=== PATIENT | male | born 1930 | race Caucasian/White ===

== ENCOUNTER 2019-04-21 21:57 | Inpatient (IN) ==
[2019-04-21] MEDS ORDERED: ZOFRAN IV ONE (22:22)
[2019-04-21 22:23] LABS: BASO# 0.01 X1000 (0.0-0.2); BASO% 0.2 % (0.0-0.8); EOS# 0.14 X1000 (0.0-0.7); EOS% 2.6 % (0.0-10.0); HEMATOCRIT 36.6 % (42.0-52.0); IMM GRAN# 0.01 X1000 (0.0-0.04); IMM GRAN% 0.2 % (0.0-0.5); LYMPH# 1.29 X1000 (1.2-3.4); LYMPH% 23.5 % (20.5-51.1); MCH 31.8 PG (27-31); MCHC 32.8 g/dL (33-37); MCV 97.1 FL (81-99); MONO# 0.66 X1000 (0.11-0.59); MPV 8.7 FL (7.4-10.4); NEUT# 3.38 X1000 (1.4-6.5); NEUT% 61.5 % (42.2-75.2); PLT 220 X1000 (130-400); RBC 3.77 XMIL (4.7-6.1); RDW 13.2 % (11.5-14.5); WBC 5.49 X1000 (4.8-10.8)
[2019-04-21 22:47] LABS: ALBUMIN 4.1 g/dL (3.5-5.0); CALCIUM 9.3 mg/dL (8.8-10.2); CREATININE 1.8 mg/dL (0.7-1.2); POTASSIUM 4.3 mmol/L (3.5-5.1); TOTAL BILIRUBIN 0.2 mg/dL (0.20-1.00); TOTAL PROTEIN 6.6 g/dL (6.3-8.3)
[2019-04-21] MEDS ORDERED: STERILE WATER INJ. ONE (22:47)
[2019-04-21] MEDS ORDERED: ZYPREXA IM ONE (22:47)
--- NOTE | 2019-04-21 22:49 | PROVIDER DOCUMENTATION ---
HPI-Abdominal Pain/GI Problem - General Chief Complaint: Ingestion,Accidental Stated Complaint: throat pain Time Seen by Provider: 04/21/19 21:57 Source: family, EMS Allergies/Adverse Reactions: Patient Allergies Allergy/AdvReac Type Severity Reaction Status Date / Time No Known Allergies Allergy Verified 07/25/13 09:31 Home Medications: Home Medication List Medication Instructions Recorded Confirmed Last Taken Type Aspirin 81 mg PO QAM 07/01/13 11/03/17 07/24/13 History Acetaminophen 500 mg PO DAILY 11/03/17 11/03/17 Unknown History Dicyclomine [Bentyl] 10 mg PO TID 11/03/17 11/03/17 Unknown History Donepezil [Aricept] 10 mg PO DAILY 11/03/17 11/03/17 Unknown History Escitalopram [Lexapro] 10 mg PO DAILY 11/03/17 11/03/17 Unknown History Nitroglycerin 0.4 mg SL PRN PRN 11/03/17 11/03/17 Unknown History Polyethylene Glycol 3350 527 mg PO PRN PRN 11/03/17 11/03/17 Unknown History [Polyethylene Glycol] Quetiapine [Seroquel] 25 mg PO BID 11/03/17 11/03/17 Unknown History - History of Present Illness-ABD Nature of Presenting Problems: Patient is a 89 year old white male with severe dementia with behavior disorder who accidentally drank large amount of [place] around 9pm tonight. Patient as subsequently developed significant vomiting. No respiratory complaints. Poison control consulted who recommended referral to GI specialist. Onset/Duration: reports: abrupt Timing: reports: still present Review of Systems - Adult - REVIEW OF SYSTEMS - ADULT Constitutional: denies: chills, fever Eyes: reports: no symptoms reported Ears, Nose, Mouth & Throat: reports: no symptoms reported Cardiovascular: denies: chest pain Respiratory: denies: shortness of breath Gastrointestinal: reports: see HPI, nausea, vomiting Genitourinary: reports: no symptoms reported Musculoskeletal: reports: no symptoms reported Integumentary: reports: no symptoms reported Neurological: reports: no symptoms reported Psychiatric: reports: see HPI, anxiety Endocrine: reports: no symptoms reported Hematologic/Lymphatic: reports: no symptoms reported Allergic/Immunologic: reports: no symptoms reported All Other Systems: Reviewed and Negative Past History - Adult - PAST MEDICAL HISTORY-ADULT Review of Records: reports: Old Records Reviewed, Nursing Assessment Review, Medications Reviewed, Social history reviewed & non-contributory. Major Childhood Illnesses: reports: denies history Cardiovascular: reports: [place] Respiratory: reports: denies history Gastrointestinal: reports: denies history Obstetrical/Gynecological: reports: denies history Genitourinary: reports: denies history Musculoskeletal: reports: denies history Neurological: reports: dementia Endocrine/Immune: reports: denies history Other Conditions: reports: denies history - PRIOR SURGERIES/PROCEDURES Surgical/Procedure History: reports: cardiac stent - IMMUNIZATION STATUS Childhood Immunizations: See Nurse Assessment Flu Vaccine: See Nurse Assessment - FAMILY HISTORY Family History: reviewed, not pertinent - SOCIAL HISTORY Smoking: denies Substance Use: denies Alcohol Use Frequency: rarely Living Situation: family Physical Exam-General - PHYSICAL EXAM-ADULT Initial Vital Signs Reviewed: Yes - CONSTITUTIONAL General Appearance: alert, no apparent distress, other (demented, agitated) - EYES Eyes: other (clear) - HEAD, EARS, NOSE, MOUTH & THROAT HENMT: moist mucous membranes, other (clear throat) - NECK Neck: non-tender, full range of motion, supple - RESPIRATORY Respiratory: lungs clear - CARDIOVASCULAR Cardiovascular: regular rate, rhythm - GASTROINTESTINAL (ABDOMEN) Abdominal Exam: non tender Progress - PLAN OF CARE/RESULTS Progress/Plan/Lab Results: Vital Signs - 8 hr 04/21/19 21:56 Temperature 97.7 F Pulse Rate 79 Respiratory Rate 18 Blood Pressure 151/73 O2 Sat by Pulse Oximetry 100 Laboratory Results - last 24 hr 04/21/19 22:16 WBC 5.49 RBC 3.77 L Hgb 12.0 L Hct 36.6 L MCV 97.1 MCH 31.8 H MCHC 32.8 L RDW Std Deviation 13.2 Plt Count 220 MPV 8.7 Immature Gran % (Auto) 0.2 Neut % (Auto) 61.5 Lymph % (Auto) 23.5 [place] % (Auto) 12.0 H Eos % (Auto) 2.6 Baso % (Auto) 0.2 Immature Gran # (Auto) 0.01 Neut # (Auto) 3.38 Lymph # (Auto) 1.29 [place] # (Auto) 0.66 H Eos # (Auto) 0.14 Baso # (Auto) 0.01 Orders Category Date Time Status Cardiac Monitoring DIRECTED Care 04/21/19 22:07 Active Misc. NRSG Communication Order DIRECTED Care 04/21/19 22:06 Active CHEST-PORTABLE [RAD] Stat Exams 04/21/19 22:07 Ordered ALCOHOL BLOOD Stat Lab 04/21/19 22:16 Received CBC WITH ELECTRONIC DIFF [HEME] Stat Lab 04/21/19 22:16 Completed CMP [COMPREHENSIVE METABOLIC PANEL] [CHEM] Stat Lab 04/21/19 22:16 Received Ondansetron [Zofran] Med 04/21/19 22:22 Discontinued 4 mg IV NOW ONE EKG [EKG] Stat Ther 04/21/19 22:30 Ordered Result Diagrams: 04/21/19 22:16 04/21/19 22:16 - CONSULTS/PCP/HOSPITALIST Notification #1 *Consult/PCP/Hospitalist*: Poison Control Time Discussed: 22:30 Reason/Comments: consult GI, NPO, supportive care Consult Disposition: Admit #2 Consult: Dr. Del Valle, GI doctor Time Discussed: 22:45 Reason/Comments: admit to hospitalist at [facility] #3 Consult: Dr. Christopher, hospitalist Time Discussed: 22:50 Consult Disposition: Admit Departure - Departure Date of Disposition Decision: 04/21/19 Time of Disposition Decision: 23:07 DIAGNOSIS: Severe dementia Accidental ingestion of caustic alkali Qualifiers: Encounter type: initial encounter Qualified Code(s): T54.3X1A - Toxic effect of corrosive alkalis and alkali-like substances, accidental (unintentional), initial encounter Disposition: ADMITTED INPATIENT 09 Certified Medical Emergency: Emergent Condition: Stable Referrals and Follow-Ups: Doctor,Unassigned [Primary Care Provider] - - Critical Care Note This patient required my direct & personal management of CC.: No Attestation - Physician/ KIERAN Attestation Patient care was provided by Advanced Practice Provider:: No The physician spent face to face time with patient:: Yes Advanced Practice Provider documentation review:: Supervising physician onsite and consulted in the evaluation and care of this patient. The physician did have a face to face encounter with the patient.
[2019-04-21] MEDS ORDERED: ZOFRAN IV PRN (23:07)
[2019-04-21] MEDS ORDERED: NS 1,000 ML IV ONE (23:07)
--- NOTE | 2019-04-22 00:47 | EKG Report ---
Test Performed on : 04/21/2019 10:36:35 PM Test Reason : ingestion Blood Pressure : / mmHG Vent. Rate : 075 BPM Atrial Rate : 075 BPM P-R Int : 178 ms QRS Dur : 092 ms QT Int : 382 ms P-R-T Axes : 069 062 068 degrees QTc Int : 426 ms Normal sinus rhythm. Anteroseptal infarct , age undetermined Abnormal ECG When compared with ECG of 29-JAN-2015 15:21, Anteroseptal infarct is now present Nonspecific T wave abnormality no longer evident in Inferior leads Unconfirmed Result
[2019-04-22] MEDS ORDERED: NS 1,000 ML ONE (02:28)
[2019-04-22 02:52] LABS: URINE SOURCE CATH
[2019-04-22 02:58] LABS: BILIRUBIN URINE NEGATIVE (NEGATIVE); BLOOD URINE NEGATIVE (NEGATIVE); COLOR YELLOW; GLUCOSE URINE NEGATIVE (NEGATIVE); KETONE URINE 20 mg/dL (NEGATIVE); LEUKOCYTES URINE NEGATIVE (NEGATIVE); NITRITE URINE NEGATIVE (NEGATIVE); PH URINE 6.5; PROTEIN URINE TRACE mg/dL (NEGATIVE); SP GRAVITY URINE 1.022; TURBIDITY URINE CLEAR (CLEAR); UROBILINOGEN URINE NORMAL (NORMAL)
[2019-04-22 03:00] LABS: UR EPITHELIAL CELLS <10 /HPF (<10); URINE BACTERIA NEGATIVE /HPF; URINE RBC <10 /HPF (<10); URINE WBC <10 /HPF (<10)
[2019-04-22] MEDS ORDERED: TYLENOL PO PRN (05:09)
[2019-04-22] MEDS ORDERED: ZOSYN 3.375 GM in NS 50 ML IV ONE (05:38)
--- NOTE | 2019-04-22 06:35 | Diag Imaging Result Doc PS360 ---
CHEST-PORTABLE - 04/21/2019 INDICATION: ingestion COMPARISON: None FINDINGS: The lungs are normally expanded and clear. Heart size and mediastinal contours are normal. No pneumothorax or pleural effusion. IMPRESSION: Negative exam. Electronically signed by Colby Lopez 04/22/2019 6:33 AM
[2019-04-22 07:02] LABS: BASO# 0.01 X1000 (0.0-0.2); BASO% 0.1 % (0.0-0.8); EOS# 0.02 X1000 (0.0-0.7); EOS% 0.2 % (0.0-10.0); HEMATOCRIT 36.9 % (42.0-52.0); HEMOGLOBIN 12.2 g/dL (14.0-18.0); IMM GRAN# 0.03 X1000 (0.0-0.04); IMM GRAN% 0.3 % (0.0-0.5); LYMPH# 0.62 X1000 (1.2-3.4); LYMPH% 6.6 % (20.5-51.1); MCH 32.4 PG (27-31); MCHC 33.1 g/dL (33-37); MCV 98.1 FL (81-99); MONO# 0.43 X1000 (0.11-0.59); MONO% 4.6 % (1.7-9.3); MPV 9.7 FL (7.4-10.4); NEUT# 8.22 X1000 (1.4-6.5); NEUT% 88.2 % (42.2-75.2); PLT 199 X1000 (130-400); RBC 3.76 XMIL (4.7-6.1); RDW 13.4 % (11.5-14.5); WBC 9.33 X1000 (4.8-10.8)
[2019-04-22 07:34] LABS: CALCIUM 8.7 mg/dL (8.8-10.2); CREATININE 1.7 mg/dL (0.7-1.2); POTASSIUM 4.9 mmol/L (3.5-5.1)
[2019-04-22] MEDS: NS 1,000 ML IV SCH ×2 (07:42→18:38)
[2019-04-22] MEDS: PROTONIX IV SCH ×2 (07:42→17:59)
[2019-04-22] MEDS: SODIUM CHLORIDE 0.9% INJ SCH ×2 (07:42→17:59)
[2019-04-22 08:04] LABS: BANDS 2 % (0-1); LYMPHS 10 % (21-51); SEGS 88 % (42-75)
--- NOTE | 2019-04-22 08:20 | HISTORY AND PHYSICAL ---
CHIEF COMPLAINT: Accidental ingestion. HISTORY OF PRESENT ILLNESS: Mr. Olivera is an 89-year-old male with severe dementia, who comes in to the emergency room tonight after accidentally drinking a large amount of [place] around 9 p.m. He had significant vomiting. Poison Control was spoken to who recommended GI consultation. He was also having a lot of cough and congestion as well. His chest x-ray is clear, but it is worrisome for aspiration, as he also sounds coarse on examination. He will be started prophylactically on Zosyn and admitted to ICU for further evaluation and treatment. PAST MEDICAL HISTORY: Dementia, hypertension, coronary artery disease. PAST SURGICAL HISTORY: Coronary stenting, back surgery. ALLERGIES: No known drug allergies. FAMILY HISTORY: at the bedside and denies significant family history. SOCIAL HISTORY: Had a 60-pack year history of smoking. No alcohol or illicit drugs at this time. HOME MEDICATIONS: A list is currently being reviewed by nursing. This was not available at the time of admission. REVIEW OF SYSTEMS: The patient has no complaint. He is severely demented. Full range of motion could not be completed. Pertinent positives for admission are listed above in the HPI. PHYSICAL EXAMINATION: VITAL SIGNS: Temperature is 98.5, pulse 72, respirations 21, blood pressure 123/57, oxygen saturation 97% on room air. GENERAL: Demented 89-year-old male lying on the ER stretcher. He is somewhat somnolent after receiving Zyprexa related to agitation in the emergency room. He does smell heavily of [place] cleaning agent. is at bedside. HEENT: Head is atraumatic and normocephalic. Pupils are equal, round and reactive to light. Extraocular eye movements intact. Sclerae anicteric. Conjunctivae are pink. Oral mucosa is moist. As noted, smells of [place] cleaning agent. NECK: Trachea is midline. No cervical lymphadenopathy. CARDIAC: S1 and S2 appreciated. No murmurs, gallops or rubs. LUNGS: Rhonchi noted bilaterally. No wheezing. No rales. Symmetric rise and fall with respirations. ABDOMEN: Soft, nondistended and nontender. Bowel sounds present in all 4 quadrants, normoactive. No pulsatile mass. No organomegaly. EXTREMITIES: No cyanosis, clubbing or edema. There are 2+ pedal pulses bilaterally. GENITOURINARY: No bladder distention. The patient voids. Otherwise deferred. NEUROLOGICAL: Oriented x3. Lethargic. DIAGNOSTIC DATA: Chest x-ray with chronic COPD changes. Laboratory data shows WBC of 5.49, hemoglobin 12, hematocrit 36.6, platelet count 220. Sodium is 133, potassium 4.3, chloride 98, carbon dioxide 22, BUN is 29, creatinine 1.8, glucose 76. Urine unremarkable. ASSESSMENT: 1. Accidental ingestion of [place]. 2. Severe dementia. 3. Acute kidney injury on chronic kidney disease stage 3. 4. Hyponatremia. 5. Anemia. PLAN: Admit the patient to ICU. We will give Protonix 40 mg IV q.12. Consult GI. Zofran as needed for nausea. We will start the patient prophylactically on Zosyn for possible aspiration. Recheck a chest x-ray this morning. Continue normal saline. Haldol 2 mg IV q.2 hours as needed for agitation. The patient may benefit from home health. He still lives with , but he is quite severely demented. Further recommendations per the patient's clinical course. Dictated by VASQUEZ Valdez for Jake Christopher MD I have performed a face to face diagnostic evaluation. Labs/Xrays -reviewed. Exam- Chest- clear , CV- regular. A/P- Accidental ingestion of [place]- Admit to ICU- Supportive care, GI consult. Dr. Ashwin Guerrier#: [id number] cc: VASQUEZ Valdez MD [facility]
--- NOTE | 2019-04-22 09:43 | Diag Imaging Result Doc PS360 ---
CHEST-PORTABLE - 04/22/2019 INDICATION: aspiration? COMPARISON: 04/21/2019 FINDINGS: The lungs are normally expanded and clear. Heart size and mediastinal contours are normal. No pneumothorax or pleural effusion. IMPRESSION: Negative exam. Electronically signed by Colby Lopez 04/22/2019 9:40 AM
[2019-04-22] MEDS: DUONEB (A & A) INH SCH ×3 (09:52→22:20)
--- NOTE | 2019-04-22 10:47 | GASTROENTEROLOGY CONSULTATION ---
DATE: 04/22/2019 REASON FOR CONSULT: The patient drank [place]. HISTORY OF PRESENT ILLNESS: Mr. Olivera is an 89-year-old male who has a history of severe dementia, presented to the emergency department last night after accidentally drinking a large amount of [place]. The patient is unable to give the history, so history gathered from his . His mentioned that yesterday, after they had supper around 5:30, and couple of hours later Mr. Olivera started complaining that his throat was hurting and his chest was hurting. His somehow had the feeling that she was smelling [place] everywhere. It felt like she had cleaned the whole house, and that is when she noticed that Mr. Olivera had accidentally ingested [place] from the bottle. His mentioned that the patient had nausea and vomiting, and that he had vomited many times, but she did not notice any blood in the emesis. She denied Mr. Olivera having any fever, chills, or shortness of breath, other than complaining about his chest pain with cough. She mentioned that he does have regular bowel movements, but he is incontinent and does not know when he does it, so she has to check him up occasionally. Chest x- ray on 04/21/2019 showed negative exam. Chest x-ray today showed negative exam. PAST MEDICAL HISTORY: He has a history of hypertension, high cholesterol, COPD, dementia, heart attack, status post stent placement. PAST SURGICAL HISTORY: Back fusion and stent placement. ALLERGIES: No known drug allergies. SOCIAL HISTORY: The patient is . He has a total of 4 kids, 2 from his side and 2 from his 's side. He is a smoker and he smokes 5 to 6 cigarettes per day. He has denied any alcohol or illicit drug use. FAMILY HISTORY: No significant GI malignancies. HOME MEDICATIONS: Aspirin 81 mg chewable daily in the morning, Bentyl 10 mg 3 times a day, Aricept 10 mg daily, Lexapro 10 mg daily, nitroglycerin 0.4 mg sublingual as needed, MiraLAX, polyethylene glycol 3350, 527 mg p.o. as needed, Seroquel 25 mg p.o. twice a day, acetaminophen 500 mg daily. REVIEW OF SYSTEMS: As per HPI. Otherwise, 12-point review of systems is negative. PHYSICAL EXAMINATION: Vital Signs: Temperature 98.6 degrees, pulse 66, respirations 16, blood pressure 115/59, oxygen saturation 97% on room air. The patient's weight is 132, BMI is 18.5 kg/m2. General: Unable to assess the patient. The patient is not alert, oriented. at the bedside. HEENT: Pale conjunctivae. No icterus. PERRL. Neck: Supple. Lungs: Rhonchi heard bilaterally in the anterior bar. Cardiovascular: Regular rate and rhythm. Abdomen: Soft, nontender, nondistended. Active bowel sounds heard in all 4 quadrants. Extremities: No clubbing, no cyanosis, no edema. Pedal pulses 2+ present bilaterally. Neurologic: Unable to assess the patient. He is not alert or oriented. LABORATORY DATA: WBCs are 9.33, RBC 3.76, hemoglobin 12.2, hematocrit 36.9, platelet count 199,000. Sodium 136, potassium 4.9, chloride 100, carbon dioxide 22, anion gap 14, BUN 27, creatinine 1.7, glucose 119, calcium 8.7. Total bilirubin 0.20, AST 17, ALT 9, alkaline phosphatase 67, albumin is 4.1. Urinalysis has shown trace of protein, ketones of 20. Toxicology report showed plasma/serum ethyl alcohol levels nondetected. IMAGING: Chest x-ray today showed negative exam. IMPRESSION AND PLAN: Accidental [place] ingestion Nausea and vomiting Aspiration pneumonia Dementia Hypertension COPD CAD Heart Attack s/p stent placement PLAN: Mr. Olivera is an 89-year-old male with a history of severe dementia, who presented to the ER with accidental ingestion of [place]. GI has been consulted for ingestion of [place]. We did an EGD today, patient had esophagitis in the proximal, mid and distal esophagus. Evidence of erythema and mucosal edema noted at the oropharynx likely due to alkali ingestion.Gastritis in the gastric antrum and gastric body and the duodenal had no abnormalities. The patient is currently receiving antiemetics Zofran 4 mg, as needed. He is on IV fluids, normal saline at 75 mL, and he is receiving Protonix 40 mg IV twice a day. The patient is also on antibiotic, Zosyn. We have ordered [place] @ 75 ml/hr for his nutrition. We will follow him up in 2-4 week as an outpatient and repeat EGD in 3 months to evaluate sequelae of alkali ingestion. We will continue to provide conservative care to the patient and follow the plan of care per PCP. This plan was discussed with Dr. Del Valle. Thank you for your consult. Adel call us for any further questions or concerns. Dictated by VASQUEZ Warren for Trell Del Valle MD cc: Trell Del Valle MD I have seen and examined the patient myself and I agree with the above plan of care. Discussed the above with the patient's family and all questions were answered. Please call us with any further questions. DAJA
[2019-04-22] MEDS ORDERED: DIPRIVAN 1% ONE (11:20)
[2019-04-22] MEDS ORDERED: XYLOCAINE-MPF 2% ONE (11:20)
--- NOTE | 2019-04-22 11:47 | ENDOSCOPY OPERATIVE NOTE ---
[facility] ENDOSCOPY OPERATIVE NOTE , EGD PROCEDURE REPORT EXAM DATE: 04/22/2019 PATIENT NAME: Mayelin Olivera MR#: [id number] BIRTHDATE: 1930 ATTENDING: Trell Del Valle MD STATUS: inpatient ELECTROCARDIOGRAPH TECHNICIAN: INDICATIONS: The patient is a 89 yr old male here for an EGD due to Accidental Alkali ingestion-dran k Pinesol last night, Nausea vomiting Dementia. PROCEDURE PERFORMED: EGD, diagnostic MEDICATIONS: Per Anesthesia ESTIMATED BLOOD LOSS: None CONSENT: The patient understands the risks and benefits of the procedure and understands that these r isks include, but are not limited to: sedation, allergic reaction, infection, perforation and/or bleeding. Alternative means of evaluation and treatment include, among others: physical exam, x-rays, and/or surgical intervention. The patient elects to proceed with this endoscopic procedure. DESCRIPTION OF PROCEDURE: During pre-op preparation period all mechanical and medical equipment was c hecked for proper function. Hand hygiene and appropriate measures for infection prevention was taken. After the risks, benefits and alternatives of the procedure were thoroughly explained, Informed consent was verified, confirmed and timeout was successfully executed by the treatment team. The patient was anesthetized with topical anesthesia and the [id number]-[id number] ([id number]) endoscope was introduced through the mouth and advanced to the second portion of the duoden um. Retroflexion was performed in the stomach and revealed no abnormalities. The gastroscope was then slowly withdraw n and removed. The patient's toleration of the procedure was good. ESOPHAGUS: Mild esophagitis was found in the proximal esophagus, mid esophagus, and distal esophagus. Esophagitis was [place] Class A: One or more mucosal breaks < 5 mm in maximal length. Evidence of erythema and mucosal e nayely noted at the oropharynx likely from alkali ingestion. STOMACH: Mild gastritis (inflammation) was found in the gastric antrum and gastric body. DUODENUM: The duodenal mucosa showed no abnormalities in the duodenal bulb, 1st part duodenum, and 2n d part duodenum. ADVERSE EVENTS: There were no complications. IMPRESSIONS: 1. Esophagitis in the proximal esophagus, mid esophagus, and distal esophagus 2. Evidence of erythema and mucosal edema noted at the oropharynx likely from alkali ingestion 3. Gastritis (inflammation) was found in the gastric antrum and gastric body 4. The duodenal mucosa showed no abnormalities in the duodenal bulb, 1st part duodenum, and 2nd part duodenum RECOMMENDATIONS: Continue conservative care. IV fluids Start IV clinimix Continue PPI for now. Watch respiratory status closely REPEAT EXAM: Return in 3 months for EGD. to evaluate for sequelae of alakali ingestion Trell Del Valle MD eSigned: Trell Del Valle MD 04/22/2019 11:46 AM CC: CPT CODES: 19021 Upper gastrointestinal endoscopy including esophagus, stomach, and either the du odenum and/or jejunum as appropriate; diagnostic, with or without collection of specimen(s) by brushing or washing (separate procedure) ICD CODES: 530.10 Esophagitis,unspecified 535.50 Unspecified gastritis and gastroduodenitis (without hemorrhage) The ICD and CPT codes recommended by this software are interpretations from the data that the [facility] staff has captured with the software. The verification of the translation of this report to the ICD and CPT co bela and modifiers is the sole responsibility of the health care institution and practicing physician where this report was generated. [employer] will not be held responsible for the validity of the ICD and CPT codes i ncluded on this report. [employer] assumes no liability for data contained or not contained herein. CPT is a registered tra demark of the [employer]. PATIENT NAME: Mayelin Olivera MR#: [id number]
[2019-04-22] MEDS: ZOSYN 2.25 GM in NS 50 ML IV SCH ×2 (12:08→18:00)
[2019-04-22] MEDS: CLINIMIX E 4.25%-5% SOLUTION 1,000 ML IV SCH (16:00)
--- NOTE | 2019-04-22 18:34 | PROGRESS NOTE ---
DATE: 04/22/2019 BRIEF PROGRESS NOTE: The patient with dementia which has been progressive for last few years an accidental ingestion of a large amount of [place]. Going for EGD today. Had marked nausea and vomiting initially, but none in the last several hours. Will arouse briefly, but not really responsive or following commands. Creatinine not really with any improvement thus far. Continuing IV fluids. We will monitor for heart rate and blood pressure issues. We will await further recommendations from Poison Control, results of EGD. Repeat chest x-ray in the morning to make sure he does not develop pneumonia or pneumonitis. He is on Zosyn currently because of concern for aspiration event during this episode. His respiratory status has been good so far. Encephalopathy continues. Does have some decreased air entry throughout. Remote but extensive smoking history, so likely some underlying COPD, but no sign of exacerbation currently.
[2019-04-23] MEDS: ZOSYN 2.25 GM in NS 50 ML IV SCH ×5 (00:06→23:56)
[2019-04-23] MEDS: DUONEB (A & A) INH SCH ×4 (04:18→22:50)
[2019-04-23] MEDS: CLINIMIX E 4.25%-5% SOLUTION 1,000 ML IV SCH ×2 (05:14→17:32)
[2019-04-23] MEDS: SODIUM CHLORIDE 0.9% INJ SCH (05:15)
[2019-04-23] MEDS: PROTONIX IV SCH ×2 (05:15→17:32)
[2019-04-23] MEDS: NS 1,000 ML IV SCH ×3 (06:04→20:05)
--- NOTE | 2019-04-23 08:34 | Diag Imaging Result Doc PS360 ---
CHEST-PORTABLE - 04/23/2019 INDICATION: cough, pine-anai ingestion with ? aspiration COMPARISON: 04/22/2019 FINDINGS: There is some mild patchy perihilar infiltrate bilaterally. This was not present previously. Heart size is normal. No pneumothorax or pleural effusion. IMPRESSION: Mild patchy perihilar infiltrates bilaterally, nonspecific. Electronically signed by Colby Lopez 04/23/2019 8:32 AM
[2019-04-23 09:55] LABS: BASO# 0.01 X1000 (0.0-0.2); BASO% 0.1 % (0.0-0.8); CALCIUM 8.3 mg/dL (8.8-10.2); CREATININE 1.4 mg/dL (0.7-1.2); EOS# 0.03 X1000 (0.0-0.7); EOS% 0.3 % (0.0-10.0); HEMATOCRIT 35.5 % (42.0-52.0); HEMOGLOBIN 11.6 g/dL (14.0-18.0); LYMPH# 0.48 X1000 (1.2-3.4); LYMPH% 5.1 % (20.5-51.1); MCH 32.1 PG (27-31); MCHC 32.7 g/dL (33-37); MCV 98.3 FL (81-99); MONO# 0.51 X1000 (0.11-0.59); MONO% 5.4 % (1.7-9.3); MPV 9.3 FL (7.4-10.4); NEUT% 89.1 % (42.2-75.2); PLT 179 X1000 (130-400); POTASSIUM 4.1 mmol/L (3.5-5.1); RBC 3.61 XMIL (4.7-6.1); RDW 13.5 % (11.5-14.5); WBC 9.43 X1000 (4.8-10.8)
[2019-04-23 10:43] LABS: BANDS 14 % (0-1); BASO 2 % (0-1); LARGE PLATELETS 1+; LYMPHS 4 % (21-51); MONO 4 % (1-9); SEGS 76 % (42-75)
--- NOTE | 2019-04-23 17:04 | PROGRESS NOTE ---
DATE: 04/23/2019 INTERVAL HISTORY: Minimal improvement in mental status. Slightly more awake but still pretty encephalopathic. No nausea or vomiting. Some PVCs and dropped beats on telemetry intermittently but when we attempted to get it on EKG, it was all normal sinus rhythm. No other acute events overnight. REVIEW OF SYSTEMS: Unable to obtain secondary to patient's mental status. LABS: WBC 9.4, hemoglobin 11.6, hematocrit 35.5, platelets 179,000. Sodium 136, potassium 4.1, BUN 27, creatinine 1.4, glucose 137. IMAGING: Chest x-ray with mild patchy perihilar infiltrates that are pretty minimal, otherwise pretty clear. VITAL SIGNS: T-max 100.1 degrees, pulse 81, respirations 22, blood pressure 117/53, O2 saturation 99% on room air. PHYSICAL EXAMINATION: General: No acute distress. Vital signs: As above. HEENT: Normocephalic, atraumatic. Moist mucous membranes. Cardiovascular: Regular rate and rhythm with occasional PVCs or skipped beats. No murmurs noted. Pulmonary: Clear to auscultation bilaterally. Abdomen: Soft, nontender, nondistended. Bowel sounds positive. Extremities: Peripheral pulses intact. No clubbing or cyanosis. Neurologic: Exam limited by patient's mental status, but pupils equal, round, reactive to light. Occasionally will open eyes and appears to track slightly. Does move eyes to all quadrants. Occasional nonpurposeful movement of all extremities. No clear focal deficits identified. Psychiatric: The patient is pretty encephalopathic. Wakes up and occasionally appears to be slightly alert but no verbal responses. Does not follow any commands. ASSESSMENT AND PLAN: 1. Accidental [place] ingestion. Patient is status post EGD yesterday showing mild erythema of pretty much everything from the proximal esophagus on down, but no severe inflammation or ulceration. No further nausea or vomiting. Continue to monitor for heart rate and blood pressure issues and see if Poison Control has any further recommendations. 2. Toxic metabolic encephalopathy. Likely related to known underlying dementia and ingestion and acute illness. He has been slow to come around. Minimal improvement but still heavily encephalopathic today. No severe metabolic derangements identified. May just need time to get further out from his ingestion. We will try to see about moving him out of ICU today, which may help somewhat. 3. Possible aspiration. The patient did have some mildly elevated temps without mary kate fever overnight. Some very faint minimal perihilar infiltrates on his chest x-ray but nothing really significant thus far. His oxygenation remains excellent. We will continue the Zosyn 1 more day and check another chest x-ray in the morning, but if it still looks pretty good, we may be able to discontinue antibiotics but will see what pops up. 4. Acute kidney injury on likely chronic kidney disease 3. Creatinine 1.8 on admission. With fluids, improving to 1.4. Baseline appears to be 1.2 to 1.3, so we are getting pretty close to that. Not taking anything p.o. right now so we will continue with IV fluids. Also started on some Clinimix. 5. Chronic obstructive pulmonary disease. Respiratory status pretty good. No sign of exacerbation at this time. 6. Hypertension. Has been largely normotensive here off of antihypertensive, so we will just monitor. 7. Coronary artery disease. Patient n.p.o. right now. Once patient is able to take p.o. and GI is okay with it, we will restart home aspirin. 8. Sinus arrhythmia. Patient with PVCs and some skipped beats on cardiac monitoring this morning. When EKG was checked he was just normal sinus, but we will move him out of PVC to make sure he does not develop a more concerning arrhythmia in the immediate future.
--- NOTE | 2019-04-23 17:34 | EKG Report ---
Test Performed on : 04/23/2019 09:57:58 AM Test Reason : arrythmia Blood Pressure : / mmHG Vent. Rate : 079 BPM Atrial Rate : 079 BPM P-R Int : 164 ms QRS Dur : 092 ms QT Int : 420 ms P-R-T Axes : 046 -26 074 degrees QTc Int : 481 ms Normal sinus rhythm. Septal infarct (cited on or before 21-APR-2019) T wave abnormality, consider anterolateral ischemia Abnormal ECG When compared with ECG of 21-APR-2019 22:36, (Unconfirmed) Serial changes of Septal infarct present Confirmed by Royal LEVINE, Toni ([id number]) on 04/25/2019 10:33:10 AM
--- NOTE | 2019-04-23 18:29 | GASTROENTEROLOGY PROGRESS NOTE ---
DATE: 04/23/2019 SUBJECTIVE: The patient is resting in bed. He has history of dementia. Spoke with the patient's nurse. The patient has been coughing and clearing his secretions from the throat. He is still n.p.o. Receiving IV Clinimix and IV fluids. No documented nausea and vomiting. OBJECTIVE: Vital Signs: Temperature 98 degrees, pulse rate of 81, respiratory rate 22, blood pressure 170/52, saturating 98% room air. Body weight of 132 pounds, 4.8 ounces. BMI 18.5 kg. General Appearance: Thinly built, lying in bed, in no acute distress. HEENT: Pale conjunctivae. No icterus. Neck: Supple. Abdomen: Soft, nondistended. No guarding or rebound. Extremities: No cyanosis or clubbing. Neurologic: He is alert. He has baseline dementia. LABS: Hemoglobin and hematocrit 11.6 and 35.5, white count 9.43, platelet count of 139,000. Sodium 136, potassium 4.1, chloride 104, bicarb 29, BUN of 27, creatinine 1.4, glucose of 137, calcium 8.3. IMAGING: Chest x-ray done today showing mild patchy perihilar infiltrates bilateral, nonspecific. IMPRESSION AND PLAN: 1. Accidental [place] ingestion. The EGD showed mild erythema showing superficial burn in the esophagus but he did have inflammation in his oropharynx and right at the start of the laryngeal inlet. That could be the reason that he is having coughing spells and trying to clear his secretions. He will continued to be watched closely by primary team. 2. Baseline dementia. Aware. 3. Possible aspiration. He has some perihilar infiltrates on chest x-ray. He has been on antibiotics per the primary team. 4. Acute kidney injury. Likely on top of chronic kidney disease. His creatinine is being monitored by primary care team. 5. Chronic obstructive pulmonary disease. Aware. 6. Coronary artery disease history. Aware. 7. Nausea and vomiting has resolved for now. 8. Malnutrition. He is on Clinimix. 9. The patient will continue on aspiration precautions and will continue on IV antiemetics ,IV fluids, IV Clinimix and IV antibiotics per the primary team. The above plan of care was discussed with the patient's nurse at bedside. All questions were answered. Please call with any further questions. cc: MD Jw Carter MD
[2019-04-23] MEDS: HALDOL IV PRN (23:56)
[2019-04-24] MEDS: DUONEB (A & A) INH SCH ×4 (03:50→21:40)
[2019-04-24] MEDS: SODIUM CHLORIDE 0.9% INJ SCH (05:41)
[2019-04-24] MEDS: PROTONIX IV SCH ×2 (05:41→17:19)
[2019-04-24] MEDS: ZOSYN 2.25 GM in NS 50 ML IV SCH ×4 (05:41→23:27)
[2019-04-24] MEDS: NS 1,000 ML IV SCH ×3 (05:42→23:27)
[2019-04-24 06:47] LABS: EOS# 0.09 X1000 (0.0-0.7); HEMATOCRIT 34.9 % (42.0-52.0); HEMOGLOBIN 11.6 g/dL (14.0-18.0); LYMPH# 0.59 X1000 (1.2-3.4); LYMPH% 6.7 % (20.5-51.1); MCH 32.4 PG (27-31); MCHC 33.2 g/dL (33-37); MCV 97.5 FL (81-99); MONO# 0.73 X1000 (0.11-0.59); MONO% 8.3 % (1.7-9.3); MPV 9.9 FL (7.4-10.4); NEUT# 7.38 X1000 (1.4-6.5); PLT 168 X1000 (130-400); RBC 3.58 XMIL (4.7-6.1); RDW 13.3 % (11.5-14.5); WBC 8.79 X1000 (4.8-10.8)
[2019-04-24 07:09] LABS: CALCIUM 8.5 mg/dL (8.8-10.2); CREATININE 1.5 mg/dL (0.7-1.2); POTASSIUM 3.7 mmol/L (3.5-5.1)
[2019-04-24] MEDS: CLINIMIX E 4.25%-5% SOLUTION 1,000 ML IV SCH ×2 (07:34→21:01)
--- NOTE | 2019-04-24 14:13 | PROGRESS NOTE ---
DATE: 04/24/2019 INTERVAL HISTORY: The patient is slightly more awake, but still markedly confused, largely nonverbal, and completely noncooperative. Still some nonproductive cough occasionally. Still some PVCs and drop beats on telemetry, but mostly normal sinus rhythm. Remains afebrile. No acute events overnight. REVIEW OF SYSTEMS: Unable to obtain secondary to the patient's mental status. LABORATORY DATA: WBC 8.7, hemoglobin 11.6, hematocrit 34.9, platelets 168,000. Sodium 136, potassium 3.7, BUN 28, creatinine 1.5, glucose 118. OBJECTIVE: Vital Signs: T-max 100 degrees, pulse 64, respirations 19, blood pressure 112/53, O2 saturation 97% on room air. General: Mildly agitated. Vital Signs: As above. HEENT: Normocephalic, atraumatic. Moist mucous membranes. Cardiovascular: Regular rate and rhythm. No murmurs noted. Pulmonary: Remains pretty clear to auscultation bilaterally. Abdomen: Soft, nontender, nondistended. Bowel sounds positive. Extremities: Peripheral pulses intact. No clubbing or cyanosis. Neurologic: Limited by the patient's mental status, but pupils equal, round, reactive to light. Moving all extremities intermittently, but not purposefully. No clear focal deficits. Psychiatric: The patient is still quite encephalopathic. He is awake, but not very alert. Only intermittently responsive to voice. Does not follow any commands or respond verbally. ASSESSMENT AND PLAN: 1. Accidental [place] ingestion. The patient is status post esophagogastroduodenoscopy, showing mild erythema of essentially everything from the posterior oropharynx on down, but no deep ulcers or other severe complication. Does have some coughing and intermittent difficulty clearing his secretions, which could be related to the inflammation of the oropharynx and laryngeal inlet. Continue to monitor closely for any sign of respiratory compromise, but has done well so far. 2. Toxic versus metabolic encephalopathy. Patient with underlying dementia, which is reportedly fairly significant, but has been almost entirely encephalopathic since he arrived. He is waking up a little, but responsiveness remains quite poor. He is not really doing anything purposeful. Will continue to try to minimize sedating medications, and monitor. 3. Possible aspiration pneumonitis. There was concern that the patient may have aspirated during the vomiting that he did after [place] ingestion. Last x-ray yesterday showed a little bit of a patchy perihilar infiltrate that does not really look like pneumonia, but could represent developing pneumonitis. Will continue antibiotics with Zosyn going for now, and monitor chest x-rays and respiratory status. 4. Possible acute kidney injury on likely chronic kidney disease 3. Creatinine 1.8 on admission, has improved to 1.45 currently, which looks to be approximately his baseline. Continue to monitor. 5. Chronic obstructive pulmonary disease. Respiratory status remains good. No sign of exacerbation at this time. 6. Hypertensive. Patient hypertensive by history, but has had normal blood pressures off of antihypertensives thus far. Continue to monitor. 7. Coronary artery disease. Once able to take by mouth and Gastroenterology clears him, will likely restart aspirin, holding for now. 8. Sinus arrhythmia. Occasional premature ventricular contractions and some skipped beats, but largely normal sinus rhythm. I have not been able to catch him doing this on an electrocardiogram yet, but will continue monitoring. 9. Disposition. Plan on moving him out of the intensive care unit pending bed availability. Given intermittent rhythm issues, will likely move him to the cardiac unit in case that progresses to something more concerning. Given poor improvement in mental status thus far, no real idea of when he may get out of the hospital. Suspect he will need rehab on discharge, and his is looking at long-term placement as well given his progressing dementia, which is clearly becoming a danger to himself with mistaking [place] for a drinkable substance.
--- NOTE | 2019-04-24 17:37 | GASTROENTEROLOGY PROGRESS NOTE ---
DATE: 04/24/2019 SUBJECTIVE: The patient is currently resting in bed. The patient has a baseline dementia. According to the nurse, the patient was moved out of the ICU this afternoon. No documented nausea or vomiting. OBJECTIVE: Vital signs: Temperature 98.1, pulse of 74, respiratory rate 18, blood pressure 124/86, saturating 100% on room air. Body weight of 132 pounds, 4.8 ounces. BMI 18.5 kg. General: Thinly built, lying in bed in no acute distress. HEENT: Mild pallor. No icterus. Neck: Supple. Abdomen: Soft, nontender, nondistended. No guarding or rebound. Extremities: No cyanosis or clubbing. Neurologic: He is sleeping, but I am able to wake him up. He has baseline dementia. Does not answer any questions. LABS: Hemoglobin and hematocrit are 11.2 and 34.9, white count of 8.79, platelet count 160. Sodium 130, potassium 3.7, chloride 104, bicarb 22, anion gap 10, BUN of 20, creatinine 1.5, glucose of 118. Calcium 8.5. IMPRESSION/PLAN: 1. Accidental [place] ingestion. 2. Toxic versus metabolic encephalopathy. 3. Possible aspiration pneumonitis. 4. Acute kidney injury, likely on top of chronic kidney disease stage 3. 5. Chronic obstructive pulmonary disease. 6. Hypertension. 7. Coronary artery disease. 8. Malnutrition. Will schedule for a swallow evaluation tomorrow. If he passes that, he can possibly start oral nutrition. In the meantime, will continue on Clinimix at 70 mg/hour. We will continue IV fluids. He will continue on Protonix twice daily. He is on IV Zofran as needed. The patient will need to be on aspiration precautions. The patient is on empiric antibiotics for now. On endoscopy, found superficial injury to the esophagus which should heal fine. We will check a repeat EGD in 3 months if he is healthy enough, to make sure there is no stricture developing. He did have oropharyngeal injury from [place] ingestion, and he has coughing spells which are improving. 9. Baseline dementia, being managed primary team. The above plan was with the patient's nurse, and all questions were answered. Please call with any further questions. cc: Trell Del Valle MD
[2019-04-24] MEDS: HALDOL IV PRN (23:31)
[2019-04-25] MEDS: DUONEB (A & A) INH SCH ×4 (03:30→21:07)
[2019-04-25] MEDS: ZOSYN 2.25 GM in NS 50 ML IV SCH ×4 (05:37→23:41)
[2019-04-25] MEDS: SODIUM CHLORIDE 0.9% INJ SCH ×2 (05:37→17:03)
[2019-04-25] MEDS: PROTONIX IV SCH ×2 (05:37→17:03)
[2019-04-25 06:35] LABS: BASO# 0.01 X1000 (0.0-0.2); BASO% 0.2 % (0.0-0.8); EOS# 0.17 X1000 (0.0-0.7); EOS% 2.9 % (0.0-10.0); HEMATOCRIT 33.3 % (42.0-52.0); HEMOGLOBIN 11.1 g/dL (14.0-18.0); LYMPH# 0.67 X1000 (1.2-3.4); LYMPH% 11.4 % (20.5-51.1); MCH 32.8 PG (27-31); MCHC 33.3 g/dL (33-37); MCV 98.5 FL (81-99); MONO# 0.49 X1000 (0.11-0.59); MONO% 8.3 % (1.7-9.3); MPV 10.1 FL (7.4-10.4); NEUT# 4.56 X1000 (1.4-6.5); NEUT% 77.2 % (42.2-75.2); PLT 177 X1000 (130-400); RBC 3.38 XMIL (4.7-6.1); RDW 13.4 % (11.5-14.5)
--- NOTE | 2019-04-25 06:38 | Diag Imaging Result Doc PS360 ---
CHEST-PORTABLE - 04/25/2019 INDICATION: dyspnea, p[place] ingestion and possibly aspiration COMPARISON: 04/23/2019 FINDINGS: Stable mild patchy central infiltrates bilaterally. Heart size is normal. No pneumothorax or pleural effusion. IMPRESSION: No change from prior. Electronically signed by Colby Lopez 04/25/2019 6:36 AM
[2019-04-25 07:04] LABS: CALCIUM 8.5 mg/dL (8.8-10.2); CREATININE 1.4 mg/dL (0.7-1.2); POTASSIUM 4.5 mmol/L (3.5-5.1)
[2019-04-25] MEDS: NS 1,000 ML IV SCH ×2 (07:38→17:11)
--- NOTE | 2019-04-25 07:40 | PROGRESS NOTE ---
DATE: 04/25/2019 INTERVAL HISTORY: No acute events overnight. SUBJECTIVE: Mr. Olivera is much more alert, though not oriented. He does not appear in any distress. He has bilateral restraints and a urine catheter. VITALS: His temperature is 98 degrees, pulse of 77, respiratory rate of 16. His blood pressure largely within acceptable range of 140/60, saturating 100% on room air. Mr. Olivera does not answer questions appropriately and engage in clinical encounter meaningfully. PHYSICAL EXAMINATION: General: The patient does not follow commands. He often times mumbles inappropriately. He does not follow verbal commands or physical gestures. HEENT: Oral cavity is moist. Pupils are bilaterally equal, reacting to light. Respiratory: Air entry bilaterally equal. No wheeze, rhonchi, crackles. Cardiovascular: S1, S2 normal. No murmur or gallop. Abdomen: Soft, nontender. Extremities: No lower extremity edema. He was able to feel my cold hands and cringe. Neurologic: He is alert. He is not oriented, but examination is nonfocal. LABS: Suggestive of normocytic anemia, normal platelet count. Improvement in acute kidney injury. MICROBIOLOGY: No positive data. X-RAYS: No new imaging data. ASSESSMENT AND PLAN: 1. Accidental [place] ingestion, status post esophagogastroduodenoscopy showing mild erythema affecting oropharynx with esophagitis and gastritis. Continue intravenous proton pump inhibitors. Await swallow evaluation. Gastroenterology team has been on board. 2. Acute encephalopathy, likely toxic versus metabolic. The patient also has underlying dementia. Today, he is alert, though not oriented. No focality on examination. I will continue to monitor. I will continue to address his agitation with as-needed haloperidol. 3. Suspected aspiration pneumonitis with inflammatory changes in perihilar region bilaterally. Continue intravenous antibiotics. He is currently breathing well on room air. 4. Acute kidney injury on chronic kidney disease stage III, now improved after intravenous fluid resuscitation. I will continue to monitor, and I will decrease intravenous fluid rate as tolerated. 5. History of chronic obstructive pulmonary disease, essential hypertension and coronary artery disease. Currently, he is normotensive and breathing well on room air. Continue albuterol ipratropium nebulization as needed, and I will start his home medications of aspirin and atorvastatin once he is able to take by mouth. 6. Sinus arrhythmia. I will continue to monitor. There are no signs of hemodynamic compromise. 7. Nutrition: Continue IV Clinimix with IV fluids. Await swallow evaluation. DISPOSITION: I will continue to monitor patient in PVC. Plan of care discussed with nursing team. cc: Mark Au MD MTDD
[2019-04-25] MEDS: CLINIMIX E 4.25%-5% SOLUTION 1,000 ML IV SCH ×2 (10:55→23:41)
--- NOTE | 2019-04-25 11:28 | GASTROENTEROLOGY PROGRESS NOTE ---
DATE: 04/25/2019 SUBJECTIVE: Resting in bed. His was at bedside. The patient is scheduled for a swallow evaluation today. No documented nausea and vomiting. OBJECTIVE: Vital Signs: Temperature 97.8, pulse of 66, respiratory rate 18, blood pressure 172/51, saturating 90% on room air. Body weight of 156 pounds 3 ounces. BMI 21.8 kg. General: The patient is moderately built, moderately nourished, lying in bed, currently sleeping, was able to wake up on command. HEENT: Positive pallor. No icterus. Neck: Supple. Abdomen: Soft, nontender, nondistended. No guarding or rebound. Extremities: No cyanosis or clubbing. Neurologic: He has baseline dementia. IMAGING AND LABORATORY DATA: Hemoglobin and hematocrit are 11.1 and 33.3, white count of 5.9, platelet count of 171,000. Sodium 137, potassium 4.5, chloride 106, bicarb of 18, anion gap 13, BUN of 26, creatinine 1.4, glucose of 101, calcium is 8.5. Chest x-ray done today showed mild patchy central infiltrates bilaterally. No pneumothorax. No change from prior. Heart size is normal. IMPRESSION AND PLAN: 1. Accidental [place] ingestion. Status post esophagogastroduodenoscopy, which showed mild erythema affecting the oropharynx, and esophagitis with gastritis. Will continue proton pump inhibitors for now. The patient is scheduled for a swallow evaluation today. If he passes swallow evaluation, he can be started on oral feeding. He will continue on aspiration precautions. 2. Acute encephalopathy. This is being monitored by the primary team. 3. Underlying dementia. Aware. 4. Aspiration pneumonia. He is on antibiotics per the primary team. 5. Acute kidney injury on chronic kidney disease stage 3. He is improved after intravenous fluids. 6. Malnutrition. He is on intravenous Clinimix. 7. History of chronic obstructive pulmonary disease. Aware. 8. History of coronary disease. Aware. 9. Anemia. Continue to watch for now. May need to start on multivitamin with iron once daily if okay with primary care team and once able to start orally. Discussed the above with the patient's family at bedside. All questions were answered. Please call us with any further questions. cc: Trell Del Valle MD
[2019-04-26] MEDS: NS 1,000 ML IV SCH ×2 (03:01→14:55)
[2019-04-26] MEDS: DUONEB (A & A) INH SCH ×4 (03:15→21:10)
[2019-04-26] MEDS: PROTONIX IV SCH (05:34)
[2019-04-26] MEDS: ZOSYN 2.25 GM in NS 50 ML IV SCH ×2 (05:34→11:02)
[2019-04-26] MEDS: SODIUM CHLORIDE 0.9% INJ SCH (05:35)
[2019-04-26 06:37] LABS: BASO# 0.01 X1000 (0.0-0.2); BASO% 0.2 % (0.0-0.8); EOS# 0.11 X1000 (0.0-0.7); EOS% 2.2 % (0.0-10.0); HEMATOCRIT 32.9 % (42.0-52.0); LYMPH# 0.69 X1000 (1.2-3.4); LYMPH% 13.7 % (20.5-51.1); MCH 32.4 PG (27-31); MCHC 33.4 g/dL (33-37); MCV 96.8 FL (81-99); MONO# 0.62 X1000 (0.11-0.59); MONO% 12.3 % (1.7-9.3); MPV 9.9 FL (7.4-10.4); NEUT% 71.6 % (42.2-75.2); PLT 190 X1000 (130-400); RDW 13.2 % (11.5-14.5); WBC 5.03 X1000 (4.8-10.8)
[2019-04-26 06:49] LABS: CALCIUM 8.2 mg/dL (8.8-10.2); CREATININE 1.4 mg/dL (0.7-1.2); POTASSIUM 3.9 mmol/L (3.5-5.1)
[2019-04-26] MEDS: CLINIMIX E 4.25%-5% SOLUTION 1,000 ML IV SCH (13:23)
--- NOTE | 2019-04-26 13:50 | PROGRESS NOTE ---
DATE: 04/26/2019 SUBJECTIVE: The patient is demented, alert, not oriented. According to the who is at bedside, the patient is more stable. OBJECTIVE: Vital Signs: Temperature 97.9 degrees, heart rate 73, respiratory rate 18, blood pressure 139/72, O2 saturation 94% on room air. General: This is an 89-year-old, demented, male lying in bed, in no acute distress. Cardiovascular: S1, S2 heard. No murmurs, gallops, or rubs. Regular rate and rhythm. Respiratory: Clear bilaterally to auscultation. No work of breathing or using accessory muscles. Abdomen: Soft, nontender to palpation. Bowel sounds present. No organomegaly. Extremities: No clubbing, cyanosis, or edema. Peripheral pulses present in both legs. Neurological: Patient is awake, but does not follow verbal commands. Sometimes he mumbles words intelligible. LABORATORY DATA: Reviewed. ASSESSMENT AND PLAN: 1. Accidental [place] ingestion, status post esophagogastroduodenoscopy. The esophagogastroduodenoscopy actually showing some erythema affecting oropharynx with esophagitis. From a Gastroenterology standpoint, I talked with Dr. Blanco and he is good to go. Swallow evaluation has been performed yesterday and he has been on pureed diet, but today he is on regular diet. So, at this point the patient is stable from that standpoint. 2. Acute encephalopathy likely toxic versus metabolic. The patient is definitely more confused here in the hospital. He is requiring restraints that we are going to try to remove today. We will continue to monitor. 3. Suspected aspiration pneumonitis. We will continue with Zosyn. He is not requiring any oxygen supplementation. He is on room air. 4. Acute on chronic kidney disease stage 3. Creatinine at baseline. We will continue to monitor. 5. History of chronic obstructive pulmonary disease, hypertension and coronary artery disease. Patient is stable. Not complaining of any chest pain. Not requiring any bronchodilator. We will continue to monitor. 6. Nutrition. We will continue with IV Clinimix and if he tolerates the diet very well today I think we will stop it tomorrow. DISPOSITION: The patient is medically stable. We will transfer this patient out of the PVC unit today. We will see if he is able to tolerate no restraints for next 48 hours, so he can be transferred back to his [place] [facility] in [facility]. cc: Meliton Box MD
--- NOTE | 2019-04-26 14:26 | PROVIDER PROGRESS NOTE ---
Progress Note S: No acute overnight events. Patient is tolerating regular diet. No N/V, abdominal pain. O: Last Vital Signs Temp 97.9 F 04/26/19 11:42 Pulse 73 04/26/19 11:42 Resp 18 04/26/19 11:42 BP 139/72 04/26/19 11:42 Pulse Ox 94 L 04/26/19 11:42 Height 5 ft 11 in Weight 156 lb 3 oz GEN: awake, alert, NAD HEENT: anicteric, MMM NECK: supple, no JVD PULM: CTAB, no wheezing ABD: soft NT/ND, NABS EXT: no cce NEURO: nonfocal, demented LABS: 04/26/19 04/26/19 05:44 05:44 WBC 5.03 Hgb 11.0 L Plt Count 190 Sodium 135 L Potassium 3.9 Chloride 103 Carbon Dioxide 21 L BUN 27 H Creatinine 1.4 H Glucose 105 H EGD 04/22 IMPRESSIONS: 1. Esophagitis in the proximal esophagus, mid esophagus, and distal esophagus 2. Evidence of erythema and mucosal edema noted at the oropharynx likely from [place] ingestion 3. Gastritis (inflammation) was found in the gastric antrum and gastric body 4. The duodenal mucosa showed no abnormalities in the duodenal bulb, 1st part duodenum, and 2nd part duodenum A/P: Mr. Mayelin Olivera is a 89 year old woman with dementia, CKD3, COPD, and CAD who was admitted after accidental [place] ingestion found to have mild eosphagitis and duodenitis. He is tolerating regular diet. Creatinine stable. Mild anemia without overt bleeding. # Accidental ingestion: transition PPI to PO once daily # Aspiration pneumonitis: consider discontinue antibiotics; supplemental O2 prn # BHARAT on CKD: resolved # Anemia: normocytic: no overt bleeding # AMS: likely delirium in setting of underlying dementia Patient is ok to be discharged from GI perspective. Please call with questions
[2019-04-26] MEDS ORDERED: ZOFRAN ODT PO PRN (16:57)
[2019-04-26] MEDS: AUGMENTIN PO SCH (21:40)
[2019-04-26] MEDS: PRILOSEC PO SCH (21:40)
[2019-04-27] MEDS: DUONEB (A & A) INH SCH ×4 (03:20→21:06)
[2019-04-27] MEDS: AUGMENTIN PO SCH ×2 (09:19→20:42)
[2019-04-27] MEDS: PRILOSEC PO SCH ×2 (09:20→20:35)
--- NOTE | 2019-04-27 10:25 | PROGRESS NOTE ---
DATE: 04/27/2019 SUBJECTIVE: Patient is demented, does not answer any questions. OBJECTIVE: Vital Signs: Temperature 98.1 degrees, heart rate 74, respiratory rate 18, blood pressure 154/71, O2 saturation 100% on room air. General: This is an 89-year-old, male, lying in bed, in no acute distress. Cardiovascular: S1, S2 heard. No murmurs, gallops, or rubs. Regular rate and rhythm. Respiratory: Clear bilaterally to auscultation. No work of breathing or using accessory muscles. Abdomen: Soft. Nontender to palpation. Bowel sounds present. No organomegaly. Extremities: No clubbing, cyanosis, or edema. Peripheral pulses present in both legs. Neurological: Patient is awake, but does not follow verbal commands. Nonverbal at times. LABORATORY DATA: Reviewed. ASSESSMENT AND PLAN: 1. Accidental [place] ingestion, status post esophagogastroduodenoscopy. From a GI standpoint, patient has been stable. He can be discharged. We will continue with current management, in this case a regular diet, Protonix 40 mg twice daily and sucralfate as well. 2. Acute encephalopathy, likely toxic versus metabolic. The patient is still confused. I think it is part of his baseline dementia but more calmed down than in previous days. 3. Suspected aspiration pneumonitis. We will continue with Augmentin. 4. Acute on chronic kidney disease stage III. Creatinine is at his baseline. We will continue to monitor BMP daily. 5. History of chronic obstructive pulmonary disease, hypertension and coronary artery disease. Patient is stable from all those conditions. He is not complaining of any chest pain. He continues to be pleasantly confused. At this point, we will continue to monitor. 6. Nutrition. The patient is eating a regular diet. 7. Disposition. Patient is going to be transferred out of the PVC unit today and will continue not requiring any restraints. We will continue to monitor this patient closely. cc: MD DAJA Wang
[2019-04-27] MEDS: GEODON IM PRN (20:35)
--- NOTE | 2019-04-27 23:04 | PROVIDER PROGRESS NOTE ---
Progress Note S: No acute overnight events. Patient not cooperative with interview this AM. Per RN, patient has been eating. Awaiting placement. O: Last Vital Signs Temp 97.8 F 04/27/19 19:49 Pulse 63 04/27/19 21:07 Resp 14 04/27/19 21:07 BP 133/61 04/27/19 19:49 Pulse Ox 96 04/27/19 21:07 Height 5 ft 11 in Weight 134 lb 3 oz GEN: awake, NAD HEENT: anicteric, MMM NECK: supple, no JVD PULM: CTAB, no wheezing ABD: soft NT/ND, NABS EXT: no cce NEURO: demented LABS: 04/26/19 04/26/19 05:44 05:44 WBC 5.03 Hgb 11.0 L Plt Count 190 Sodium 135 L Potassium 3.9 Chloride 103 Carbon Dioxide 21 L BUN 27 H Creatinine 1.4 H Glucose 105 H A/P: Mr. Mayelin Olivera is a 89 year old woman with dementia, CKD3, COPD, and CAD who was admitted after accidental [place] ingestion found to have mild eosphagitis and duodenitis. He is tolerating regular diet. Creatinine stable. Mild anemia without overt bleeding. # Esophagitis 2/2 accidental ingestion: cont PO once daily # Aspiration pneumonitis: consider discontinue antibiotics; supplemental O2 prn # BHARAT on CKD: resolved # Anemia: normocytic: stab;e no overt bleeding # AMS: likely delirium in setting of underlying dementia Will sign off. Please call with questions.
[2019-04-28] MEDS: GEODON IM PRN ×2 (00:17→20:38)
[2019-04-28] MEDS: DUONEB (A & A) INH SCH ×4 (03:21→21:57)
[2019-04-28 08:03] LABS: BASO# 0.01 X1000 (0.0-0.2); BASO% 0.2 % (0.0-0.8); EOS# 0.15 X1000 (0.0-0.7); EOS% 3.1 % (0.0-10.0); HEMATOCRIT 35.8 % (42.0-52.0); LYMPH# 0.62 X1000 (1.2-3.4); LYMPH% 12.7 % (20.5-51.1); MCH 32.4 PG (27-31); MCHC 33.5 g/dL (33-37); MCV 96.8 FL (81-99); MONO% 12.3 % (1.7-9.3); MPV 9.7 FL (7.4-10.4); NEUT% 71.7 % (42.2-75.2); PLT 214 X1000 (130-400); RDW 13.3 % (11.5-14.5); WBC 4.88 X1000 (4.8-10.8)
[2019-04-28 08:25] LABS: ALBUMIN 3.2 g/dL (3.5-5.0); CALCIUM 8.6 mg/dL (8.8-10.2); CREATININE 1.4 mg/dL (0.7-1.2); PHOSPHORUS 3.7 mg/dL (2.7-4.5); POTASSIUM 3.9 mmol/L (3.5-5.1)
[2019-04-28] MEDS: AUGMENTIN PO SCH ×2 (09:21→19:52)
[2019-04-28] MEDS: PRILOSEC PO SCH ×2 (09:21→19:52)
--- NOTE | 2019-04-28 15:45 | PROGRESS NOTE ---
DATE: 04/28/2019 SUBJECTIVE: The patient is demented, does not answer any questions. No acute issues noted as per nursing staff overnight. OBJECTIVE: Vital Signs: Temperature 98.1 degrees, heart rate 87, respiratory rate 20, blood pressure 105/53. O2 saturation 96% on room air. General: This is an 89-year-old chronically ill- appearing male, lying in bed, in no acute distress. Cardiovascular: S1 and S2 heard. No murmurs, gallops, or rubs. Regular rate and rhythm. Respiratory: Clear bilaterally to auscultation. No work of breathing or using accessory muscles. Abdomen: Soft, nontender to palpation. Bowel sounds present. No organomegaly. Extremities: No clubbing, cyanosis, or edema. Peripheral pulses present in both legs. Neurological: Patient is awake but does not follow commands. Nonverbal most of the time but moves 4 extremities spontaneously. LABORATORY DATA: Reviewed. ASSESSMENT AND PLAN: 1. Accidental [place] ingestion status post EGD. As we mentioned before, from GI standpoint patient can be discharged. Recommendation from them is to continue with Protonix 40 mg p.o. twice daily and sucralfate as well. 2. Acute encephalopathy. That condition is much better. Last time he had physical restraints was Monday morning. Until now patient has been okay, not requiring any physical restraints. Will continue to monitor. 3. Acute on chronic kidney disease stage 3. Creatinine at baseline. We will continue to monitor. 4. History of chronic obstructive pulmonary disease, hypertension, and coronary artery disease. Those conditions are stable. We will continue home medication. 5. Nutritional status. Patient is eating a regular diet. 6. Disposition. At this point, the patient is awaiting for a rehab bed. cc: Meliton Box MD
[2019-04-28] MEDS: STERILE WATER INJ. INJ PRN (20:38)
[2019-04-29] MEDS: PRILOSEC PO SCH ×3 (03:05→20:32)
[2019-04-29] MEDS: AUGMENTIN PO SCH ×3 (03:05→20:32)
[2019-04-29] MEDS: DUONEB (A & A) INH SCH ×4 (03:23→22:42)
[2019-04-29 07:36] LABS: BASO# 0.01 X1000 (0.0-0.2); BASO% 0.2 % (0.0-0.8); EOS# 0.22 X1000 (0.0-0.7); EOS% 4.7 % (0.0-10.0); HEMATOCRIT 37.5 % (42.0-52.0); HEMOGLOBIN 12.6 g/dL (14.0-18.0); LYMPH# 0.97 X1000 (1.2-3.4); LYMPH% 20.9 % (20.5-51.1); MCH 32.6 PG (27-31); MCHC 33.6 g/dL (33-37); MCV 97.2 FL (81-99); MONO# 0.72 X1000 (0.11-0.59); MONO% 15.5 % (1.7-9.3); MPV 9.6 FL (7.4-10.4); NEUT# 2.73 X1000 (1.4-6.5); NEUT% 58.7 % (42.2-75.2); PLT 238 X1000 (130-400); RBC 3.86 XMIL (4.7-6.1); WBC 4.65 X1000 (4.8-10.8)
[2019-04-29 07:53] LABS: ALBUMIN 3.3 g/dL (3.5-5.0); CALCIUM 8.9 mg/dL (8.8-10.2); CREATININE 1.4 mg/dL (0.7-1.2); PHOSPHORUS 3.5 mg/dL (2.7-4.5); POTASSIUM 4.3 mmol/L (3.5-5.1)
--- NOTE | 2019-04-29 12:52 | PROGRESS NOTE ---
DATE: 04/29/2019 SUBJECTIVE: The patient is demented. is at bedside. No acute issues noted as per nursing staff overnight. OBJECTIVE: Vital Signs: Temperature 98.4 degrees, heart rate 72, respiratory rate 19, blood pressure 121/71. O2 saturation 98% on room air. General: This is an 89-year-old, demented male, lying in bed, in no acute distress. Cardiovascular: S1, S2 heard. No murmurs, gallops or rubs. Regular rate and rhythm. Respiratory: Clear bilaterally to auscultation. No work of breathing or using accessory muscles. Abdomen: Soft, nontender to palpation. Bowel sounds present. No organomegaly. Extremities: No clubbing, cyanosis, or edema. Peripheral pulses present in both legs. Neurological: The patient is awake but does not follow any commands. He is nonverbal. Moves 4 extremities spontaneously. LABORATORY DATA: Reviewed. ASSESSMENT AND PLAN: 1. Accidental [place] ingestion status post esophagogastroduodenoscopy. The patient is stable from Gastrointestinal standpoint. Patient can be discharged on Protonix and sucralfate. 2. Acute encephalopathy. Condition is much better but because of his baseline cognitive impairment because of dementia he needed to be restrained, but he has been off those since Monday morning. We will continue to monitor. 3. Acute on chronic kidney disease stage 3. Creatinine is at baseline. We will continue to monitor. 4. History of chronic obstructive pulmonary disease, hypertension and coronary artery disease. 5. Nutritional status. Patient is eating a regular diet although he is not having a good appetite. 6. Disposition. At this point, we are waiting for rehab bed. cc: Meliton Box MD
[2019-04-30] MEDS: DUONEB (A & A) INH SCH ×4 (03:20→23:15)
[2019-04-30 07:30] LABS: BASO# 0.01 X1000 (0.0-0.2); BASO% 0.2 % (0.0-0.8); EOS# 0.14 X1000 (0.0-0.7); EOS% 3.2 % (0.0-10.0); HEMATOCRIT 36.5 % (42.0-52.0); HEMOGLOBIN 12.2 g/dL (14.0-18.0); IMM GRAN# 0.02 X1000 (0.0-0.04); IMM GRAN% 0.5 % (0.0-0.5); LYMPH% 22.8 % (20.5-51.1); MCH 32.3 PG (27-31); MCHC 33.4 g/dL (33-37); MCV 96.6 FL (81-99); MONO% 13.7 % (1.7-9.3); MPV 9.6 FL (7.4-10.4); NEUT# 2.62 X1000 (1.4-6.5); NEUT% 59.6 % (42.2-75.2); PLT 284 X1000 (130-400); RBC 3.78 XMIL (4.7-6.1); WBC 4.39 X1000 (4.8-10.8)
[2019-04-30 08:04] LABS: ALBUMIN 3.7 g/dL (3.5-5.0); CALCIUM 9.5 mg/dL (8.8-10.2); CREATININE 1.6 mg/dL (0.7-1.2); PHOSPHORUS 3.1 mg/dL (2.7-4.5); POTASSIUM 4.5 mmol/L (3.5-5.1)
[2019-04-30] MEDS: AUGMENTIN PO SCH ×2 (08:22→19:50)
[2019-04-30] MEDS: PRILOSEC PO SCH ×2 (08:22→19:49)
[2019-04-30] MEDS: GEODON IM PRN ×2 (08:23→19:44)
[2019-04-30] MEDS: STERILE WATER INJ. INJ PRN ×2 (08:23→19:44)
--- NOTE | 2019-04-30 12:17 | PROGRESS NOTE ---
DATE: 04/30/2019 SUBJECTIVE: Patient is demented. Family is at bedside. No acute issues noted. OBJECTIVE: Vital Signs: Temperature 98.1 degrees, heart rate 77, respiratory rate 17, blood pressure 154/78. O2 saturation 100% on room air. General: This is an 89-year-old, demented male, lying in bed, in no acute distress. Cardiovascular: S1, S2 heard. No murmurs, gallops, or rubs. Regular rate and rhythm. Respiratory: Clear bilaterally to auscultation. No work of breathing or using accessory muscles. Abdomen: Soft, nontender to palpation. Bowel sounds present. No organomegaly. Extremities: No clubbing, cyanosis, or edema. Peripheral pulses present in both legs. Neurological: Patient is awake, but does not follow any commands. He is nonverbal. Moves 4 extremities spontaneously. He has been off restraints for the last day four days. ASSESSMENT AND PLAN: 1. Accidental [place] ingestion status post esophagogastroduodenoscopy. He is stable from a GI standpoint. We will continue with Protonix and sucralfate. 2. Acute encephalopathy. Patient has baseline dementia. According to , he is at his baseline. 3. No requiring any physical restraints for the last 3 days. 4. Acute on chronic kidney disease stage 3. Creatinine at baseline. We will continue to monitor. 5. History of chronic obstructive pulmonary disease, hypertension and coronary artery disease stable. 6. Nutritional status. Patient is eating a regular diet with appetite not completely good. We will continue to monitor. 7. Disposition: At this point, we will continue to wait for a rehab bed. cc: Meliton Box MD
[2019-05-01] MEDS: PRILOSEC PO SCH ×3 (00:10→21:05)
[2019-05-01] MEDS: AUGMENTIN PO SCH ×3 (00:10→21:05)
[2019-05-01] MEDS: DUONEB (A & A) INH SCH ×4 (03:43→21:22)
--- NOTE | 2019-05-01 13:11 | PROGRESS NOTE ---
DATE: 05/01/2019 SUBJECTIVE: The patient is demented, does not talk to me. There is no family at bedside. No acute issues noted. OBJECTIVE: Vital Signs: Temperature 97.5 degrees, heart rate 70, respiratory rate 18, blood pressure 150/105, O2 saturation 100% on room air. General: This is an 89-year-old male, demented, lying in bed, in no acute distress. Cardiovascular: S1 and S2 heard. No murmurs, gallops, or rubs. Regular rate and rhythm. Respiratory: Clear bilaterally to auscultation. No work of breathing or using accessory muscles. Abdomen: Soft, nontender to palpation. Bowel sounds present. No organomegaly. Extremities: No clubbing, cyanosis, or edema. Peripheral pulses present in both legs. Neurologic: The patient is awake, but does not follow any commands. He is nonverbal, moves 4 extremities spontaneously. He has been off restraints for the last 5 days. ASSESSMENT AND PLAN: 1. Accidental [place] ingestion, status post EGD. The patient is stable from a GI standpoint. We will continue with Protonix and sucralfate. 2. Acute encephalopathy. The patient is back to his baseline dementia. He has not required any physical restraints for the last 5 days. 3. Acute on chronic kidney disease, stage 3. Creatinine is at baseline. We will continue to monitor. 4. History of chronic obstructive pulmonary disease, hypertension, and coronary artery disease, stable. 5. Nutritional status. Given the patient is on a regular diet, he is not eating completely fine, we will continue to monitor. 6. Disposition. At this point, we continue to wait for a rehab bed for the last 5 days. cc: Meliton Box MD
[2019-05-01] MEDS: GEODON IM PRN (13:48)
[2019-05-01] MEDS: STERILE WATER INJ. INJ PRN (13:49)
[2019-05-02] MEDS: GEODON IM PRN (01:56)
[2019-05-02] MEDS: DUONEB (A & A) INH SCH ×4 (03:16→15:55)
[2019-05-02] MEDS: PRILOSEC PO SCH (10:00)
[2019-05-02] MEDS: AUGMENTIN PO SCH (10:00)
--- NOTE | 2019-05-02 12:48 | DISCHARGE SUMMARY ---
ADMISSION DATE: 04/22/2019 DISCHARGE DATE: 05/02/2019 ADMISSION DIAGNOSES: 1. Accidental ingestion of [place]. 2. Severe dementia. 3. Acute kidney injury on chronic kidney disease stage 3. 4. Hyponatremia. 5. Anemia. DISCHARGE DIAGNOSES: 1. Accidental [place] ingestion, status post esophagogastroduodenoscopy and stable. 2. Acute encephalopathy with a baseline of dementia. No physical restraints for 5+ days. 3. Acute kidney injury on chronic kidney disease stage 3, is back to baseline. 4. Chronic obstructive pulmonary disease, no exacerbation. 5. Hypertension, stable. 6. Coronary artery disease, stable. 7. Nutritional status, on a regular diet. Still needs to improve on oral intake. CONSULTATIONS: Dr. Blanco. SURGERIES AND PROCEDURES: On 04/22/2019, EGD was performed by Dr. Del Valle. No complications. It showed esophagitis in the proximal esophagus, mid esophagus, and distal esophagus. Evidence of erythema, mucosal edema noted at the oropharynx, likely from the [place] ingestion. Gastritis with inflammation found in the gastric antrum and gastric body. The duodenal mucosa showed no abnormalities in the duodenal bulb, first part of duodenum, and second part of duodenum. Continue conservative care, IV fluids, IV Clinimix, proton pump inhibitor. Watch respiratory status. Return in 3 months for EGD to evaluate for sequela of alkali ingestion. HOSPITAL COURSE: Mr. Mayelin Olivera is an 89-year-old male with a medical history of dementia who came into the emergency department on the . Apparently had accidentally drank a large amount of [place] around 9 p.m., started having significant vomiting. Poison Control was called and recommended GI consult. He was also having a lot of cough and congestion. X- ray with clear but there was concern for aspiration. He also sounded coarse on examination. He was started on Zosyn prophylactically and transferred to the ICU for further evaluation and treatment. He went urgently for EGD as reported in surgeries and procedures above, and continued on symptomatic treatment. He was eventually advanced to a regular diet, although he still had not very good intake. Continued with his dementia but the encephalopathy improved. He did not require any restraints for at least 5 days or 6 days prior to discharge. DISCHARGE VITAL SIGNS: Temperature 98.5 degrees, heart rate 60, respiratory rate 14, blood pressure 125/90, O2 saturation 100% on room air. DISCHARGE LABORATORY DATA: White blood cells 4000, hemoglobin 12, hematocrit 36, platelet count 284,000. Sodium 140, potassium 4.5, BUN 33, creatinine is 1.6, glucose 78, albumin 3.7. PERTINENT IMAGING: On the , chest x-ray, negative exam. On , chest x- ray, negative exam. On the , chest x-ray, mild patchy perihilar infiltrates bilaterally but it is nonspecific. On the , chest x-ray, there was no change from prior. Still with some infiltrates but he continued on Zosyn. EKG, sinus rhythm, 75, QTc 426. Another EKG on the , sinus rhythm, rate 79, QTc 481. DISCHARGE MEDICATIONS: 1. Lipitor 20 mg p.o. nightly. 2. Aricept 10 mg p.o. daily. 3. Aspirin 81 mg p.o. daily. 4. Lexapro 10 mg p.o. daily. 5. Seroquel 25 mg p.o. twice daily. 6. Carafate 1 g p.o. t.i.d. 7. Protonix 40 mg p.o. twice daily. 8. Zofran 4 mg p.o. every 4 to 6 hours p.r.n. DISCHARGE DIET: Regular with Ensure. DISCHARGE ACTIVITY: As tolerated. DISCHARGE PHYSICIAN FOLLOWUP: Dr. Torito Mendoza and gastroenterology in 3 months, Dr. Del Valle to have another EGD. DISCHARGE INSTRUCTIONS: If your condition changes, contact physician and/or return to emergency department. Changes may include, but are not limited to shortness of breath, increased fatigue, excessive bleeding, unexplained weight loss or gain, unmanageable pain, signs or symptoms of infection. Notify MD for any of the following: Cramps or excessive thirst, seizures, persistent nausea and vomiting. General instructions include keep all followup appointments, take all prescribed medications as directed, return to the emergency department immediately for any new or worsening symptoms. DISCHARGE DISPOSITION: [facility]. Dictated by VASQUEZ Tuttle for Meliton Box MD Addendum: Patient seen and examined by myself. Agree with VASQUEZ note. It reflects my assessment and plan. Patient is being discharged in stable condition. Will be seen by PCP in a week after rehab discharge. cc: VASQUEZ Tuttle MD MTDD
[2019-05-02 15:49] VITALS: BP 132/69
== END 2019-05-02 16:49 | DRG 917 ==
LOC: P.ED 21:57 → SUATTDRO 04-22 00:58 → ICU 04-22 00:58 → 2N 04-24 15:08 → 3N 04-27 15:39
PROVIDERS: ATTEND Internal Medicine